=== PATIENT | female | born 1935 | race Caucasian/White ===

== ENCOUNTER 2017-01-05 21:32 | Inpatient (IN) ==
[2017-01-05 22:18] LABS: MANUAL DIFF NEEDED? NO
[2017-01-05 22:23] LABS: IMM GRAN% 1.8 % (0.0-0.5)
[2017-01-05 22:32] LABS: INR 0.98; PROTIME 10.3 Seconds (9.2-11.7)
[2017-01-05 22:42] LABS: CALCIUM 8.8 mg/dL (8.8-10.2); POTASSIUM 4.8 mmol/L (3.5-5.1); TOTAL BILIRUBIN 0.25 mg/dL (0.20-1.00); TOTAL PROTEIN 6.8 g/dL (6.3-8.3)
[2017-01-05 23:29] LABS: URINE CULTURE NEEDED? NO; URINE SOURCE CATH
[2017-01-05 23:32] LABS: BILIRUBIN URINE NEGATIVE (NEGATIVE); BLOOD URINE NEGATIVE (NEGATIVE); COLOR YELLOW; GLUCOSE URINE NEGATIVE (NEGATIVE); LEUKOCYTES URINE NEGATIVE (NEGATIVE); NITRITE URINE NEGATIVE (NEGATIVE); PROTEIN URINE NEGATIVE (NEGATIVE); SP GRAVITY URINE 1.019; TURBIDITY URINE HAZY (CLEAR); UROBILINOGEN URINE NORMAL (NORMAL)
[2017-01-05 23:33] LABS: URINE MICRO REVIEW NEEDED? YES
[2017-01-05 23:39] LABS: UR EPITHELIAL CELLS <10 /HPF (<10); URINE BACTERIA NEGATIVE /HPF; URINE RBC 20-40 /HPF (<10); URINE WBC <10 /HPF (<10)
--- NOTE | 2017-01-05 23:40 | PROVIDER DOCUMENTATION ---
This chart was entered by Peter Stark Scribe, acting as scribe for Niranjan Corcoran MD. HPI-Musculoskeletal Pain/Inj - GENERAL Chief Complaint: Fall Stated Complaint: fall Time Seen by Provider: 01/05/17 21:44 Source: patient - HX OF PRESENT ILLNESS-MUSKULOSKELTAL Nature of Presenting Problem: Pt is a 81 yof who presents to ER via EMS from custodial where she tripped over her walker, fell and hit the wall and now complains of L hip pain. On exam , pt was not in acute distress, but was given 4 of morphine and 4 of zofran by EMS correctional officer captain. Pt denies head injury/loss of consciousness. Quality of Pain: reports: aching, cramping, throbbing Severity in ED: mild (Pt was given 4 Morphine and 4 Zofran by EMS correctional officer captain) Onset/Duration: just prior to arrival Timing: still present Any recent injury?: Yes Locality of Occurance: Home Similar Symptoms Previously?: No Recently seen or treated by another doctor?: No - FALL INJURY Location of Pain/Injury: reports: lower extremity (LLE/L hip) Pain Radiation: reports: no radiation Reason for Fall: reports: tripped Loss of Consciousness: no loss of consciousness Injury Associated Symptoms: reports: joint pain, muscle aches, snap/crack/pop sensation, unable to bear weight, weakness, trouble walking. denies: arm pain, back/neck pain, chest pain, diaphoresis, dizziness, headaches, nausea, puncture wound, shortness of breath, sensory/motor loss, pain with inspiration, vomiting Review of Systems - Adult - REVIEW OF SYSTEMS - ADULT Constitutional: denies: chills, fever, fatique, night sweats, weight gain, weight loss Eyes: reports: no symptoms reported Ears, Nose, Mouth & Throat: reports: no symptoms reported Cardiovascular: denies: chest pain, edema, heart murmur, irregular heart rate, orthopnea, palpitations, poor circulation, PND, syncope Respiratory: denies: chronic cough, cough, dyspnea on exertion, excessive sputum production, hemoptysis, pleurisy, shortness of breath, wheezing Gastrointestinal: reports: no symptoms reported Genitourinary: reports: no symptoms reported Musculoskeletal: reports: bone pain, joint pain, muscle aches, muscle weakness. denies: back pain, frequent leg cramps, joint swelling, neck pain Integumentary: reports: no symptoms reported Neurological: reports: no symptoms reported Psychiatric: reports: no symptoms reported Endocrine: reports: no symptoms reported Hematologic/Lymphatic: reports: no symptoms reported Allergic/Immunologic: reports: no symptoms reported All Other Systems: Reviewed and Negative Past History - Adult - PAST MEDICAL HISTORY-ADULT Review of Records: reports: Nursing Assessment Review, Medications Reviewed Gastrointestinal: reports: Crohn's, ulcer, other (colon cancer) Musculoskeletal: reports: osteoporosis Neurological: reports: CVA, dementia, Seizures/Epilepsy Endocrine/Immune: reports: cancer (colon ), thyroid disorder - PRIOR SURGERIES/PROCEDURES Surgical/Procedure History: reports: other (colostomy) - PRIOR HOSPITALIZATIONS Prior Hospitalizations: reports: none - IMMUNIZATION STATUS Childhood Immunizations: See Nurse Assessment Flu Vaccine: See Nurse Assessment - FAMILY HISTORY Family History: reviewed, not pertinent Physical Exam-Injury Related - Physical Exam-Injury Related Initial Vital Signs Reviewed: Yes General Appearance: appears well, alert, no apparent distress (was given 4 of morphine and 4 of Zofran by EMS correctional officer captain) Head, Ears, Nose, Mouth & Throat: normocephalic/atraumatic, moist mucous membranes, normal ENT inspection, TMs normal, pharynx normal Neck: non-tender, full range of motion, supple, normal inspection. negative: C- spine tenderness, decresed ROM, limited range of motion Respiratory: chest non-tender, lungs clear, normal breath sounds, no pleuratic chest pain, no respiratory distress, no accessory muscle use. negative: wheezing Cardiovascular: normal peripheral pulses, regular rate, rhythm. negative: bradycardia, tachycardia, irregularly irregular Abdominal Exam: normal bowel sounds, non tender, soft, no organomegaly, no pulsatile mass, other (colostomy bag). negative: abnormal bowel sounds, distended, guarding, rebound, tenderness Extremity: no calf tenderness, normal capillary refill, pedal edema (2+ bilateral), swelling, tenderness. negative: normal range of motion, non-tender , normal gait, normal inspection, no pedal edema, deformity, erythema, inflammation Integumentary: normal color, warm/dry, swelling. negative: diaphoresis, ecchymosis, erythema, tenderness, warm, abrasion, contusion(s), laceration Neurologic: trauma director II-XII nml as tested, grossly normal, no motor/sensory deficits . negative: facial droop, focal weakness, motor weakness, sensory deficit Psych/Mental Status: normal mood/affect, normal thought content, normal thought process, oriented x 3 Progress - PLAN OF CARE/RESULTS Progress/Plan/Lab Results: Vital Signs - 8 hr 01/05/17 21:54 Temperature 97.9 F Pulse Rate 64 Respiratory Rate 20 Blood Pressure 132/80 O2 Sat by Pulse Oximetry 100 Laboratory Results - last 24 hr 01/05/17 01/05/17 01/05/17 21:38 21:38 21:38 WBC 5.47 RBC 2.91 L Hgb 9.6 L Hct 30.0 L MCV 103.1 H MCH 33.0 H MCHC 32.0 L RDW Std Deviation 13.9 Plt Count 338 MPV 9.4 Immature Gran % (Auto) 1.8 H Neut % (Auto) 44.1 Lymph % (Auto) 38.0 [place] % (Auto) 13.9 H Eos % (Auto) 1.8 Baso % (Auto) 0.4 Immature Gran # (Auto) 0.10 H Neut # (Auto) 2.41 Lymph # (Auto) 2.08 [place] # (Auto) 0.76 H Eos # (Auto) 0.10 Baso # (Auto) 0.02 PT 10.3 INR 0.98 Sodium 131 L Potassium 4.8 Chloride 97 L Carbon Dioxide 20 L Anion Gap 14 BUN 10 Creatinine 0.9 Estimated GFR/1.73 m2 60 BUN/Creatinine Ratio 11 Glucose 84 Calculated Osmolality 261 Calcium 8.8 Total Bilirubin 0.25 AST 26 ALT 9 L Alkaline Phosphatase 44 Total Protein 6.8 Albumin 4.0 Globulin 2.8 Albumin/Globulin Ratio 1.4 Urine Source 01/05/17 23:15 WBC RBC Hgb Hct MCV MCH MCHC RDW Std Deviation Plt Count MPV Immature Gran % (Auto) Neut % (Auto) Lymph % (Auto) [place] % (Auto) Eos % (Auto) Baso % (Auto) Immature Gran # (Auto) Neut # (Auto) Lymph # (Auto) [place] # (Auto) Eos # (Auto) Baso # (Auto) PT INR Sodium Potassium Chloride Carbon Dioxide Anion Gap BUN Creatinine Estimated GFR/1.73 m2 BUN/Creatinine Ratio Glucose Calculated Osmolality Calcium Total Bilirubin AST ALT Alkaline Phosphatase Total Protein Albumin Globulin Albumin/Globulin Ratio Urine Source CATH Orders Category Date Time Status Nance Cath Insertion ORDERED Care 01/05/17 22:11 Active FEMUR MIN 2 VIEWS LEFT [RAD] Stat Exams 01/05/17 22:07 Taken CBC WITH ELECTRONIC DIFF [HEME] Stat Lab 01/05/17 21:38 Completed COMPREHENSIVE METABOLIC PANEL [CHEM] Stat Lab 01/05/17 21:38 Completed PROTIME WITH INR [COAG] Stat Lab 01/05/17 21:38 Completed UA NIMS W/REFLEX CULT [URINALYSIS] Stat Lab 01/05/17 23:15 Results Morphine Med 01/05/17 22:12 Active 2 mg IV Q2H PRN PRN Result Diagrams: 01/05/17 21:38 01/05/17 21:38 - XRAY 1 XRAY: Left XRAY Study: Hip, Femur Impression: See EMR Report XRAY Interpretation: Proximal femoral neck fx - CONSULTS/PCP/HOSPITALIST Notification #1 *Consult/PCP/Hospitalist*: Dr. Calderon (Orthapedist) Time Discussed: 22:51 #2 Consult: Dr. Sanz (Hospitalist) Time Discussed: 23:32 Consult Disposition: Admit Departure - Departure Time of Disposition Decision: 22:57 DIAGNOSIS: Femoral fracture Disposition: ADMITTED INPATIENT 09 Certified Medical Emergency: Emergent Condition: Stable Referrals and Follow-Ups: Chandra Ibrahim MD [Primary Care Provider] - This chart was documented by the indicated scribe, (Peter Stark Scribe) and accurately reflects the services I performed and decisions made by me, Niranjan Corcoran MD, as attested by the provider's signature.
[2017-01-05 23:46] LABS: URINE CASTS NONE SEEN; URINE CRYSTALS CA OXALATE PRESENT; URINE SMALL ROUND CELLS NONE SEEN
[2017-01-06] MEDS ORDERED: TEARISOL OPH SOLUTION BOTH EYES PRN (00:24)
[2017-01-06] MEDS ORDERED: MONISTAT-DERM 2% CREAM TOP PRN (00:24)
[2017-01-06] MEDS ORDERED: ZOFRAN IV PRN ×2 (02:31→14:34)
[2017-01-06 03:06] LABS: BASO% 0.2 % (0.0-0.8); EOS# 0.12 X1000 (0.0-0.7); EOS% 2.1 % (0.0-10.0); HEMATOCRIT 29.6 % (37.0-47.0); HEMOGLOBIN 9.5 g/dL (12.0-16.0); LYMPH# 2.07 X1000 (1.2-3.4); LYMPH% 36.3 % (20.5-51.1); MCH 33.5 PG (27-31); MCHC 32.1 g/dL (33-37); MCV 104.2 FL (81-99); MONO# 0.83 X1000 (0.11-0.59); MONO% 14.6 % (1.7-9.3); MPV 9.6 FL (7.4-10.4); PLT 350 X1000 (130-400); RBC 2.84 XMIL (4.2-5.4)
[2017-01-06] MEDS: NS 1,000 ML IV SCH ×3 (03:11→21:55)
[2017-01-06] MEDS: MORPHINE IV PRN ×3 (03:11→20:28)
[2017-01-06] MEDS: PROTONIX IV SCH (03:12)
[2017-01-06] MEDS: SODIUM CHLORIDE 0.9% INJ SCH (03:12)
[2017-01-06 05:44] LABS: MANUAL DIFF NEEDED? NO
[2017-01-06 05:51] LABS: BASO% 0.1 % (0.0-0.8); EOS# 0.03 X1000 (0.0-0.7); EOS% 0.4 % (0.0-10.0); HEMATOCRIT 26.8 % (37.0-47.0); HEMOGLOBIN 8.7 g/dL (12.0-16.0); IMM GRAN# 0.09 X1000 (0.0-0.04); IMM GRAN% 1.2 % (0.0-0.5); LYMPH# 0.93 X1000 (1.2-3.4); LYMPH% 12.9 % (20.5-51.1); MCHC 32.5 g/dL (33-37); MCV 101.5 FL (81-99); MONO# 0.78 X1000 (0.11-0.59); MONO% 10.8 % (1.7-9.3); MPV 8.8 FL (7.4-10.4); NEUT% 74.6 % (42.2-75.2); PLT 297 X1000 (130-400); RBC 2.64 XMIL (4.2-5.4)
[2017-01-06] MEDS ORDERED: HALL'S COUGH LOZENGE MT PRN (05:52)
[2017-01-06 06:01] LABS: INR 1.03; PROTIME 10.8 Seconds (9.2-11.7); PTT 23.6 Seconds (22.0-36.0)
--- NOTE | 2017-01-06 06:20 | HISTORY AND PHYSICAL ---
PRIMARY CARE PROVIDER: Chandra Ibrahim MD CHIEF COMPLAINT: Fall with left hip pain. HISTORY OF PRESENT ILLNESS: This is a pleasant 81-year-old female, who was seen by a primary care provider. Dr. Chandra Ibrahim. She resides at [facility]. She states that she was walking tonight and tripped over her walker and fell up against the wall hitting her left hip. She states that she did hit her head but not very hard against the wall. She did not have loss of consciousness, dizziness or headache associated with this spell. On arrival to the emergency room, an x-ray of the left hip showed a proximal femoral neck fracture. Dr. Calderon was consulted and will see patient in the a.m. She will be admitted to the medical floor for further evaluation and treatment. PAST MEDICAL HISTORY: 1. Crohn's disease. 2. Colon cancer, status post colon resection with colostomy. 3. Osteopetrosis. 4. Chronic rectal bleeding. 5. Iron deficiency anemia. 6. GERD. 7. Moderate dementia. 8. Hypothyroidism. 9. Seizure disorder. Last seizure was 10 years ago. SURGICAL HISTORY: Colostomy with multiple peristomal herniations. FAMILY HISTORY: Daughter has migraines, hypertension. Another daughter has diabetes mellitus type 2. Parents both had coronary artery disease and from heart-related issues. SOCIAL HISTORY: Lives at [facility]. Denies tobacco, alcohol or illicit drug use or abuse. ALLERGIES: No known drug allergies. HOME MEDICATIONS: 1. Canasa suppository 1000 mg per rectum daily. 2. TriCor 145 mg p.o. daily. 3. Potassium chloride 40 mEq p.o. daily. 4. Aricept 5 mg p.o. q.a.m. 5. Ultram 50 mg p.o. t.i.d. 6. Imuran 50 mg p.o. daily. 7. Anderson Tonic 5 mL p.o. 4 times a day. 8. Pentasa 500 mg p.o. 4 times a day. 9. Actos 30 mg p.o. daily. 10. Naphcon-A eyedrops 1 drop both eyes p.r.n. 11. Alprazolam 0.5 mg p.o. at bedtime. 12. Zofran 4 mg p.o. 4 times a day. 13. Zyrtec 1 tablet p.o. daily. 14. Omeprazole 20 mg 1 capsule p.o. b.i.d. 15. Synthroid 112 mcg p.o. daily. 16. Magnesium oxide 4 mg p.o. daily. 17. Yovani protective cream 1 application topically daily. 18. Oragel 20% 1 application as needed p.r.n. 19. Remeron 15 mg p.o. at bedtime. 20. Yovani antifungal 1 topical application daily. 21. Diflucan 100 mg p.o. daily. 22. Omnicef 300 mg p.o. b.i.d. REVIEW OF SYSTEMS: Fourteen point review of systems conducted with the patient. She has complaint of left hip pain. All other systems reviewed and are negative. PHYSICAL EXAMINATION: VITAL SIGNS: Temperature 97.9 degrees, pulse 64, respirations 20, blood pressure 132/80, oxygen saturation 100% on room air. GENERAL: Very pleasant, 81-year-old female, lying in the ER stretcher. No acute distress. Answers all questions appropriately. The daughter is at bedside. HEENT: Head is atraumatic, normocephalic. Pupils equal, round, reactive to light. Extraocular eye movement intact. Sclerae are anicteric. Conjunctivae are mildly pale. Oral mucosa is moist. NECK: Supple. No JVD. No thyromegaly. Trachea is midline. No cervical lymphadenopathy. CARDIAC: Regular rate. S1-S2 appreciated. No murmurs, gallops, rubs. LUNGS: Clear to auscultation. No rhonchi, wheezes or rales. Symmetrical rise and fall of respirations. ABDOMEN: Soft, nondistended, nontender. Ostomy noted and left lower quadrant. Brown stool. Bowel sounds overall decreased. EXTREMITIES: No clubbing, cyanosis, or edema. Left foot hammertoe noted. Left lower extremity toes can be wiggled. Neurovascularly intact. Two plus pedal pulses bilaterally. NEUROLOGICAL: Cranial nerves 2-12 appear to be grossly intact. DIAGNOSTIC DATA: X-ray of the left hip shows a proximal femoral neck fracture. LABORATORY DATA: WBC 5.47, hemoglobin 9.6, hematocrit 30.0, platelet count 338,000. PT 10.3, INR 0.98, sodium 131, potassium 4.8, chloride 97, carbon dioxide 20, BUN 10, creatinine 0.9, glucose 84. Urine unremarkable. ASSESSMENT AND PLAN: 1. Proximal left femur fracture. Dr. Calderon has been consulted. We will defer Cardoso's traction orders to Orthopedics. Morphine 2 mg IV q.2 hours p.r.n. Patient will be held NPO after midnight. 2. Iron deficiency anemia. Patient is noted to be mildly anemic. We will type and screen patient for possible surgical procedure. 3. Gastroesophageal reflux disease. Protonix 40 mg IV daily. 4. History of colon cancer with colostomy. Aware. Colostomy is draining into the bag with no problems. 5. Moderate dementia. Will hold p.o. medications as noted above except for Xanax for fear of withdrawal. All other medications can be restarted when appropriate. 6. Primary hypothyroidism. Check TSH. 7. Further recommendations per patient clinical course. Dictated by GHAZALA Valadez for Rimma Sanz MD cc: GHAZALA Valadez MD Timothy P. Weirich, MD
--- NOTE | 2017-01-06 08:32 | PROGRESS NOTE ---
DATE: 01/06/2017 SUBJECTIVE: Ms. Milian tripped and fell last night, sustaining a proximal femoral neck fracture of the left hip. She rates her pain on a scale of 1-10 with 10 being the worst as a 5. She has been getting morphine as needed for pain. She is awake and easily arousable. She answers questions appropriately. She denies any chest pain, palpitations, or anginal equivalents. She is breathing comfortably and maintaining O2 saturations of 99% to 100% on room air. She does have a longstanding history of chronic iron deficiency anemia. Her hemoglobin and hematocrit this morning were 8.7 and 26.8. OBJECTIVE: Vital Signs: Temperature 97.3 degrees, pulse 84, respirations 16, BP 146/68. CV: Regular rate and rhythm. Lungs: Clear. Abdomen: Soft, nontender, with active bowel sounds. LABORATORY STUDIES: Various laboratory studies were obtained. A CBC demonstrated a white count of 7.21, hemoglobin 8.7, hematocrit 26.8 and a platelet count of 297,000. Electrolytes demonstrated the following: Sodium 131, potassium 4.8, chloride 97, BUN 10 and creatinine 0.9. ASSESSMENT AND PLAN: 1. Proximal femoral neck fracture of the left hip. We will hold her n.p.o. and continue morphine 2 mg IV q. [address] for pain[address] Dr[address] Calderon will see her in consultation today, and I am hopeful that he could proceed with surgical correction of the fracture today. I had a nice conversation with her family and I believe that she would benefit from short-term rehabilitation following discharge from the hospital. We will consult social group worker for short-term rehabilitation placement. The family has asked for [facility]. 2. Chronic iron deficiency anemia. Her baseline hemoglobin/hematocrit are 10 and 31. This morning, her hemoglobin and hematocrit were 8.7 and 26.8. She is hemodynamically stable. She is not tachycardic. Her blood pressure is normal. I am not going to transfuse her at this time. We will monitor her hemoglobin and hematocrit. We will transfuse if her hemoglobin/hematocrit continue to trend downward or if she becomes hemodynamically unstable. cc: MD Chandra Lopez MD
--- NOTE | 2017-01-06 08:59 | Diag Imaging Result Document ---
PROCEDURE NAME: FEMUR MIN 2 VIEWS LEFT - 01/05/2017 LEFT FEMUR, FOUR VIEWS: FINDINGS: There is an intertrochanteric fracture to the left femur. Femoral head remains in the acetabulum. No other abnormality. IMPRESSION: Intertrochanteric fracture to the left femur.
[2017-01-06] MEDS ORDERED: KEFZOL 1 GM/D5W 1 GM/50 ML IVPB IV ONE (10:02)
--- NOTE | 2017-01-06 10:26 | CONSULTATION ---
DATE OF CONSULTATION: 01/06/2017 CHIEF COMPLAINT: Left intertrochanteric hip fracture. HISTORY OF PRESENT ILLNESS: An 81-year-old who presented to the emergency department yesterday after a fall from a standing height. She resides at [facility]. She says she tripped over her walker when she fell. She denies loss of consciousness or any back pain. She was admitted to the hospital service, and orthopedics was consulted for evaluation of the fracture. PAST MEDICAL HISTORY: She has Crohn disease and history of colon cancer with a colon resection and colostomy, and she has had 3 different colon surgeries. Her colostomy is on the left side. She has osteoporosis, iron deficiency anemia, reflux disease, dementia, hypothyroidism and "epilepsy." It has been sometime since she has had a seizure. She has steroid-induced hyperglycemia. ALLERGIES: There are no reported drug allergies. HOME MEDICATIONS: Her home medications include Imuran, Pentasa, Actos, in addition to other medications. FAMILY HISTORY/SOCIAL HISTORY: Hypertension, diabetes, and coronary disease run in the family. She does not use tobacco or alcohol. She normally walks with a walker and has been doing so since September. She sustained a fall in September. REVIEW OF SYSTEMS: She denies recent cold, cough, fevers, chills, chest pain, shortness of breath, skin rash, dysuria, or other acute illness. PHYSICAL EXAMINATION: General: A pleasant female who is alert and answers questions in the room. HEENT: Conjunctivae pink. Mucous membranes are moist. Neck: Supple without JVD. Respirations: Nonlabored. Abdomen: Soft. She does have a colostomy to the left upper abdomen area. Extremities: The left hip has pain with any attempts at range of motion. She has some shortening and external rotation of the left hip. The left foot is well perfused. ASSESSMENT AND PLAN: Left hip intertrochanteric hip fracture. I counseled the patient and her family about her x-ray findings and the injury pattern. We discussed the risks and benefits and options and indications of surgical intervention and stabilization of the fracture with intramedullary nailing. After a thorough discussion of the risks, benefits, options, and indications, the patient understands and wished to proceed. She is nothing by mouth, and we will plan for intramedullary nailing today. cc: DO Chandra Acharya MD
[2017-01-06] MEDS ORDERED: KEFZOL 1 GM/D5W 1 GM/50 ML IVPB ONE (10:42)
[2017-01-06] MEDS ORDERED: CLAVE SECONDARY SET 11953 ONE (10:42)
[2017-01-06] MEDS ORDERED: NEOSPORIN G.U. IRRIGANT ONE (10:48)
[2017-01-06] MEDS ORDERED: MARCAINE 0.25% PF/EPI 1:200,000 ONE (11:46)
[2017-01-06] MEDS ORDERED: DIPRIVAN 1% ONE (12:09)
[2017-01-06] MEDS ORDERED: NORCO-5 PO PRN (13:29)
--- NOTE | 2017-01-06 14:07 | OPERATIVE NOTE ---
PROCEDURE DATE: 01/06/2017 PREOPERATIVE DIAGNOSIS: Left hip intertrochanteric fracture. POSTOP DIAGNOSIS: Left hip intertrochanteric fracture. PROCEDURE: Left hip intramedullary nailing of the femur. SURGEON: Dr. Artemio Calderon. ANESTHESIA: General. IV FLUIDS: Lactated Ringer's. ESTIMATED BLOOD LOSS: 50 mL. COMPLICATIONS: None. DRAINS: None. ANTIBIOTICS: Given IV preop. BRIEF HISTORY: Patient with a history of fall from a standing height and intertrochanteric fracture to the left hip. The patient and family were counseled about risks and benefits, and options and indications of intramedullary nailing and surgical fixation. After thorough discussion of the risks, benefits and options and indications, patient understands and wished to proceed with surgical intervention. ORTHOPEDIC IMPLANTS: Synthes 380 mm IM TFN nail with helical blade and setscrew and distal locking screw. DESCRIPTION OF PROCEDURE: The patient was taken to the operating room, where a time-out sight verification procedure was performed. The left hip was identified the site for surgery, prepped and draped sterile usual fashion. Using a small incision just proximal to the tip of the greater trochanter, sharp dissection was performed through the skin down to the level of the tensor and the tensor was split. A starting awl was placed on the tip of the greater trochanter. The trochanter was then cannulated with the starting awl. An intramedullary ball-tipped guide was then placed under fluoro. Once this was in good position the measurement was obtained to determine nail length. Opening reamer was used and a flexible reamer was then passed using a 12 mm reamer. This passed easily and the IM nail was then passed. Once the IM nail was in good position which was confirmed on fluoroscopic examination, the extramedullary guide was used to place a threaded guidepin into the femoral neck and head. This was observed on fluoro and AP and lateral views throughout placement. Once this was in good position a measurement was obtained. The helical blade depth was determined. Opening reamer was used. The helical blade was then placed over the threaded guidepin. Traction was taken off the leg at this point. This was reduced using an impaction technique as well as using the extramedullary guide. Once this was reduced adequately, the setscrew was then placed and it did engage. The extramedullary guide was removed. Irrigation of all incisions was performed and attention was turned to the distal nail. Using the static locking hole with the technique of perfect circles, the distal locking screw was then placed. This was placed with good bone purchase. The placement of the screw was confirmed on AP and lateral views. Irrigation of this incision was performed as well. The tensor and each incision was closed with 0 Vicryl. The subcu with 2-0 Vicryl, skin was closed rhonda. Local anesthetic with 0.25% Marcaine with epinephrine was injected around the incision. Sterile dressings applied and the patient was taken to recovery in stable condition. Sponge, needle count correct x2. The patient tolerated procedure well. No complications. cc: DO Chandra Acharya MD
[2017-01-06] MEDS ORDERED: MILK OF MAGNESIA PO PRN (14:34)
[2017-01-06] MEDS: TYLENOL PO SCH ×2 (17:30→21:49)
[2017-01-06] MEDS: XANAX XR PO SCH (21:41)
[2017-01-06] MEDS: COLACE PO SCH (21:41)
[2017-01-06] MEDS: OXY IR PO PRN (21:42)
[2017-01-06] MEDS: PERIDEX MT SCH (21:42)
[2017-01-06] MEDS: KEFZOL 1 GM/D5W 1 GM/50 ML IVPB IV SCH (21:42)
[2017-01-07 05:55] LABS: HEMATOCRIT 19.4 % (37.0-47.0); HEMOGLOBIN 6.1 g/dL (12.0-16.0)
[2017-01-07] MEDS: MORPHINE IV PRN ×4 (06:19→19:56)
[2017-01-07] MEDS: PROTONIX IV SCH (06:20)
[2017-01-07] MEDS: TYLENOL PO SCH ×2 (06:20→16:32)
[2017-01-07] MEDS: SODIUM CHLORIDE 0.9% INJ SCH (06:20)
[2017-01-07] MEDS: LOVENOX SUBQ SCH (06:20)
[2017-01-07] MEDS: KEFZOL 1 GM/D5W 1 GM/50 ML IVPB IV SCH (06:20)
[2017-01-07 06:23] LABS: AGAP 11; BUN 8 mg/dL (8-22); CALCIUM 7.1 mg/dL (8.8-10.2); CHLORIDE 105 mmol/L (98-107); COSMO 273; POTASSIUM 4.1 mmol/L (3.5-5.1); SODIUM 137 mmol/L (136-145); TCO2 21 mmol/L (25-35)
[2017-01-07] MEDS: OXY IR PO PRN ×3 (07:24→21:07)
[2017-01-07] MEDS: FERROUS SULFATE PO SCH (08:20)
[2017-01-07] MEDS: PERIDEX MT SCH ×2 (08:20→21:06)
--- NOTE | 2017-01-07 09:58 | PROGRESS NOTE ---
DATE: 01/07/2017 SUBJECTIVE: Ms. Milian is postoperative day #1 for a left hip intramedullary nailing of the femur secondary to a left hip intertrochanteric fracture. She is with complaint of persistent pain which she ranks as a 6 or 7 on a scale of 1-10. She is currently being given [place] 5 one q.4 hours p.r.n. pain. She has a longstanding history of iron deficiency anemia. Postoperatively, she was noted to have a hemoglobin of 6.1 and a hematocrit of 19.4 this morning. She is alert and easily arousable. She denies any chest pain, palpitations, or anginal equivalents. OBJECTIVE: Vital Signs: Temperature 98.9 degrees, pulse 94, respirations 16, BP 102/45. CV: Regular rate and rhythm. Lungs: Clear. Abdomen: Soft, nontender, with active bowel sounds. ASSESSMENT AND PLAN: 1. Proximal femoral neck fracture of the left hip, status post left intramedullary nailing of the femur. She is having persistent hip pain. I am going to increase the Manchester to 10 mg every 4- 6 hours as needed for pain. Physical therapy has been consulted to see the patient. We have asked social service worker to look for a short-term rehabilitation bed. 2. Acute blood loss anemia. There has been a significant drop in her hemoglobin and hematocrit. Her hemoglobin and hematocrit were 9 and 29 on admission. I agree with Dr. Calderon's orders of typing, crossmatching, and transfusing 2 units of packed red blood cells. I will recheck a hemoglobin and hematocrit in the morning. cc: MD Chandra Lopez MD
[2017-01-07] MEDS: HALDOL IV PRN (11:28)
[2017-01-07] MEDS: NORCO-7.5 PO PRN (11:29)
[2017-01-07] MEDS: XANAX XR PO SCH (21:06)
[2017-01-07] MEDS: COLACE PO SCH (21:07)
[2017-01-08] MEDS: MORPHINE IV PRN ×2 (02:01→06:04)
[2017-01-08] MEDS: HALDOL IV PRN (02:15)
[2017-01-08 05:51] LABS: HEMATOCRIT 27.4 % (37.0-47.0)
[2017-01-08] MEDS: SODIUM CHLORIDE 0.9% INJ SCH (06:04)
[2017-01-08] MEDS: PROTONIX IV SCH (06:04)
[2017-01-08] MEDS: TYLENOL PO SCH ×3 (06:05→15:43)
[2017-01-08] MEDS: LOVENOX SUBQ SCH (06:05)
--- NOTE | 2017-01-08 09:01 | PROGRESS NOTE ---
DATE: 01/08/2017 SUBJECTIVE: The patient is awake and alert this morning. She states that her pain is reasonably controlled. She is scheduled to get up and have some type of weightbearing today with physical therapy. She has had no rectal bleeding and is not aware of any other bleeding site. OBJECTIVE: Vital Signs: Temperature 98.5, 99, 18, 99/45. Lungs: On exam, patient's lungs are clear. Cardiovascular: Regular. Skin: I did not review her surgical wounds. Extremities: She does not have any edema in the lower extremities. : Nance catheter is in place and has a nearly clear colored urine in the legal collector. LABORATORY: Hemoglobin is 9.0, hematocrit 27.4, this is dramatically improved post transfusion. ASSESSMENT AND PLAN: 1. The patient's femoral neck fracture has been repaired with femoral nail. She still has some pain, but seems reasonably well controlled on her oral agents. 2. The patient's blood count has been transfused to an acceptable level. She has a long history of iron-deficiency anemia. This has been reasonably well controlled up until her most recent trauma. 3. We are aware of the patient's osteoporosis. 4. Hypothyroidism, aware. 5. Mild to moderate dementia, aware and stable. cc: Chandra Ibrahim MD
[2017-01-08] MEDS: FERROUS SULFATE PO SCH (09:34)
[2017-01-08] MEDS: NS 1,000 ML IV SCH ×2 (09:34→20:18)
[2017-01-08] MEDS: PERIDEX MT SCH ×2 (09:34→20:18)
[2017-01-08] MEDS ORDERED: ANESTHESIA PB SET 88 IN 5742 ONE (10:51)
[2017-01-08] MEDS ORDERED: XYLOCAINE-MPF 2% ONE (10:51)
[2017-01-08] MEDS ORDERED: DECADRON ONE (10:51)
[2017-01-08] MEDS ORDERED: LR 1,000 ML ONE (10:51)
[2017-01-08] MEDS ORDERED: ZOFRAN ONE (10:51)
--- NOTE | 2017-01-08 15:57 | PROGRESS NOTE ---
DATE: 01/08/2017 SUBJECTIVE: Ms. Milian is an 81-year-old female who is postoperative day 2 from a left hip intramedullary nailing of the femur. She has no new complaints. OBJECTIVE: General: She is a well-developed, well-nourished female. She is alert and cooperative with exam. Vital Signs: Stable. She is afebrile. Her hematocrit is 27.4% and her hemoglobin is 9. Extremities: Her incisions are clean, dry, and intact without sign of infection. Her calf is soft. Her leg is neurovascularly intact without sign of deep venous thrombosis. ASSESSMENT: Postoperative day 2 from a left hip intramedullary nailing of the femur. PLAN: We will continue working with her with physical therapy. She can go to rehab later this week when she is medically stable. Dictated by GIDEON Ac for Kev Guadalupe MD cc: GIDEON Ac MD Timothy P. Weirich, MD
[2017-01-08] MEDS: OXY IR PO PRN (20:17)
[2017-01-08] MEDS: COLACE PO SCH (20:18)
[2017-01-08] MEDS: XANAX XR PO SCH (20:18)
[2017-01-09] MEDS: NORCO-7.5 PO PRN ×2 (01:03→08:58)
[2017-01-09 05:37] LABS: HEMATOCRIT 27.3 % (37.0-47.0); HEMOGLOBIN 9.1 g/dL (12.0-16.0)
[2017-01-09] MEDS: PROTONIX IV SCH (05:54)
[2017-01-09] MEDS: SODIUM CHLORIDE 0.9% INJ SCH (05:54)
[2017-01-09] MEDS: TYLENOL PO SCH ×2 (05:54→14:01)
[2017-01-09] MEDS: FERROUS SULFATE PO SCH (08:48)
[2017-01-09] MEDS: PERIDEX MT SCH (08:48)
--- NOTE | 2017-01-09 10:45 | DISCHARGE SUMMARY ---
ADMISSION DATE: 01/06/2017 DISCHARGE DATE: 01/09/2017 DISCHARGE DIAGNOSES: 1. Left hip fracture intertrochanteric with intramedullary nail placement. 2. Crohn disease. 3. Colostomy. 4. Mild dementia. 5. Anxiety. 6. Chronic iron-deficiency anemia. HOSPITAL COURSE: This 81-year-old, white female fell at home suffering an intertrochanteric fracture of her left hip. She was brought to the hospital by ambulance. Surgery was performed with an intramedullary nail being placed. She tolerated this quite well and was regaining her feet at the time of discharge. Postoperatively, she had a fairly precipitous drop in her hemoglobin down to 6.1. She was transfused 2 units and her hematocrit remained stable with a hemoglobin of 9 or more and hematocrit of 27 or more. Her vital signs were stable. Pain was well controlled. The patient expressed a wish to have local rehab and bed is being sought for that purpose. The patient's mental status remained intact during her hospitalization. She is quite lucid and eager to proceed with rehab to get back on her feet. The patient's daughter is present most of the time and is very helpful in anchoring the patient. cc: Chandra Ibrahim MD
--- NOTE | 2017-01-09 10:55 | PROGRESS NOTE ---
DATE: 01/09/2017 SUBJECTIVE: Ms. Milian is an 81-year-old female who is postoperative day 3 from a left hip intramedullary nailing of the femur. She has no new complaints. OBJECTIVE: General: She is a well-developed, well-nourished female. She is alert and cooperative with the exam. Vital Signs: Stable. She is afebrile. Her hematocrit is 27.3% and her hemoglobin is 9.1%. She walked 30 feet with physical therapy yesterday. Extremities: Her incisions are clean, dry, and intact without sign of infection. Her calf is soft. Her leg is neurovascularly intact. No sign of deep venous thrombosis. ASSESSMENT: Postoperative day 3 from a left hip intramedullary nailing of the femur. PLAN: We will continue working with her with physical therapy. She can be transferred to rehab once she is medically stable. Dictated by GIDEON Ac for Kev Guadalupe MD cc: GIDEON Ac MD Timothy P. Weirich, MD
--- NOTE | 2017-01-09 13:24 | Diag Imaging Result Document ---
PROCEDURE NAME: CHEST-PORTABLE - 01/09/2017 PORTABLE CHEST X-RAY: COMPARISON: 10/12/2014. FINDINGS: The lungs are normally expanded and clear. Heart size and mediastinal contours are normal. No pneumothorax or pleural effusion. IMPRESSION: Negative exam.
[2017-01-09 13:56] VITALS: BP 139/55
== END 2017-01-09 14:23 ==
LOC: ED 21:32 → 4N 01-06 01:53 → SUATTDRO 01-06 01:53
PROVIDERS: ADMIT Internal Medicine; ATTEND Internal Medicine